=== PATIENT | female | born 1930 | race Two or more races ===

== ENCOUNTER 2022-04-18 08:45 | Outpatient (CLI) | payer OTHER | END 2022-04-18 08:54 | disposition home or self-care (01) | LOC: RX STUDY 08:45 | PROVIDERS: ATTEND Internal Medicine Sports Medicine | DX: R10.13 Epigastric pain (principal) ==

== ENCOUNTER 2022-04-25 08:55 | Outpatient (CLI) | payer OTHER | END 2022-04-25 08:56 | disposition home or self-care (01) | LOC: TOM 08:55 | PROVIDERS: ATTEND Internal Medicine Gastroenterology | DX: R10.13 Epigastric pain (principal) ==